=== PATIENT | male | born 1975 | race Caucasian/White ===

== ENCOUNTER 2025-01-16 14:42 | Day surgery (SDC) | payer OTHER ==
[2025-01-16] MEDS ORDERED: Rabies Vaccine Human 2.5 UNITS VIAL IM ONE (15:45)
== END 2025-01-16 14:43 | disposition home or self-care (01) ==
LOC: CSHER/OP 14:42 → CSHSDC/OP 14:42 → CSHER/OP 14:43
PROVIDERS: ATTEND Student in an Organized Health Care Education/Training Program
DX: Z29.14 Encounter for prophylactic rabies immune globulin (principal)
CPT/HCPCS: 90675; 99281